=== PATIENT | female | born 1995 | race Caucasian/White ===

== ENCOUNTER 2016-07-19 10:12 | Emergency (ER) | payer OTHER ==
[~2016-07-19] VITALS: Ht 154.9 cm; Wt 81.8 kg
[2016-07-19 10:14] VITALS: BP 138/82; PULSE 93; RESP 16; O2SAT 98
--- NOTE | 2016-07-19 10:31 | ED.REPORT ---
HPI-Abd Pain F Under 39 Date of Service Jul 19, 2016 ED Provider: Homer Sharp MD Pt is a healthy 20 y/o female presenting to the ED c/o intermittent lower abdominal cramping pain onset last night. She describes her pain as severe menstrual cramping which lasts for 5 minutes at a time. Her pain does not seem to be brought on by anything specific and simply relieves with time. Pt c/o associated mild diarrhea. She denies fever, vomiting, bloody stools, urinary frequency, dysuria. She just began her menstrual period today. She has never been and does not believe that she could be at this time. There is no history of abdominal surgeries. The patient had a similar less severe episode 4 months ago which lasted 2 months ago at which time the workup was negative. There has been no recent alcohol use. Nursing Notes Stated Complaint: CRAMPING Chief Complaint: Female Abdominal Pain Nursing Notes Reviewed: Yes Allergies: Coded Allergies: No Known Allergies (Verified Allergy, Unknown, 04/22/14) General Time Seen by MD: 10:30 Chief Complaint Abdominal pain Hx Obtained From: Patient Arrived By: Walk-in Sudden in Onset?: No Onset Occurred: 9 - 12 hours ago Symptom Duration: Intermittent Progression since Onset: Waxes and wanes Location: : Abdomen lower Quality: Painful Radiation: : Does not radiate Severity: Current: No pain currently Severity: Maximum: Severe Similar Sx Previous: No Past Medical History Past Medical History Depression Past Surgical History denies Smoking History Never Smoker Social History Alcohol Use: "Social" Drug Use: Denies drug use Other Social History: Good social support, Lives alone Ambulatory Status Independent Review of Systems Constitutional: Denies: Chills, Fever Respiratory: Denies: Non-productive cough, Shortness of breath Cardiovascular: Denies: Chest pain, Dyspnea on exertion GI: Reports: Abdominal pain, Diarrhea, Denies: Bloody/tarry stool, Nausea, Vomiting Female: Denies: Dysuria, Urinary frequency Complete sys rev & neg: except as marked. Physical Exam Initial Vital Signs Vital Signs (First) Date Time Temp Pulse Resp B/P Pulse Ox O2 Delivery O2 Flow Rate FiO2 07/19/16 10:14 37.0 93 16 138/82 98 Room Air Initial VS: Reviewed, Vital signs normal Head / Eyes: Atraumatic, Normocephalic, PERRL ENT: Mucous membranes moist, Conjunctiva normal, No scleral icterus Neck: Supple, Full range of motion Extremities: Vascular intact, Neuro intact, No swelling, No tenderness Skin: Warm, Dry, No cyanosis Neurologic: Alert, Oriented, Nonfocal Psychiatric: Mood/affect normal, Behavior normal, Normal thought content General/Constitutional: Awake, Alert, No acute distress, Well appearing, Well developed, Well hydrated, Well nourished, Cooperative, Not toxic appearing Respiratory / Chest: Atraumatic, Breath sounds NL, Breath sounds = bilat, No respiratory distress, No rales, No rhonchi, No wheezing, No retractions, No stridor, No chest tenderness, No chest wall deformity, No crepitus Cardiovascular: Heart rate NL, Regular rhythm, Heart sounds NL, No gallop, No murmurs, No rubs, Cap refill not delayed, Peripheral circulation NL Abdomen: Atraumatic, Soft, Non-tender, No guarding, No rebound, No distention, No palpable mass Back: Full range of motion, Painless range of motion, No CVA tenderness Interpretation & Diagnostics Lab Results Interpretation Result Diagram: 07/19/16 1045 07/19/16 1045 Test 07/19/16 10:45 07/19/16 13:19 White Blood Count 11.3th/mm3 (3.8-10.1) Red Blood Count 4.79mil/mm3 (3.90-5.20) Hemoglobin 14.1g/dL (12.0-15.6) Hematocrit 41.5% (35.0-46.0) Mean Corpuscular Volume 86.6fL (81-100) Mean Corpuscular Hemoglobin 29.4pg (27.0-35.0) Mean Corpuscular Hemoglobin Concent 34.0% (32.0-37.0) Red Cell Distribution Width 13.3% (12.3-15.4) Platelet Count 235bil/L (150-400) Neutrophils (%) (Auto) 82.5% (40-74) Lymphocytes (%) (Auto) 9.0% (14-46) Monocytes (%) (Auto) 8.0% (4-12) Eosinophils (%) (Auto) 0% (0-5) Basophils (%) (Auto) 0.1% (0-3) Sodium Level 138mEq/L (134-144) Potassium Level 4.2mEq/L (3.5-5.2) Chloride Level 97mEq/L (97-108) Carbon Dioxide Level 25mmol/L (18-29) Blood Urea Nitrogen 9mg/dL (6-20) Creatinine 0.78mg/dL (0.57-1.00) Estimat Glomerular Filtration Rate 134mL/min (>59) Glucose Level 100mg/dL (60-99) Calcium Level 9.2mg/dL (8.5-10.1) Magnesium Level 1.9mg/dL (1.6-2.6) Total Bilirubin 0.6mg/dL (0.0-1.2) Aspartate Amino Transf (AST/SGOT) 17U/L (0-50) Alanine Aminotransferase (ALT/SGPT) 19U/L (0-32) Alkaline Phosphatase 68U/L (25-150) Total Protein 7.3g/dL (6.4-8.4) Albumin 4.4g/dL (3.4-5.0) Lipase 23U/L (13-60) Hold Maguire Top Tube Received (Received) Urine Color Yellow (YELLOW) Urine Appearance Hazy (CLEAR,HAZY) Urine pH 6.0 (5.0-8.0) Urine Specific [place] 1.015 (1.003-1.035) Urine Protein Negativemg/dL (NEG,TRACE) Urine Glucose (UA) Negativemg/dL (NEGATIVE) Urine Ketones Negativemg/dL (NEGATIVE) Urine Occult Blood Small (NEGATIVE) Urine Nitrite Negative (NEGATIVE) Urine Bilirubin Negative (NEGATIVE) Urine Urobilinogen Normalmg/dL (NORMAL) Urine Leukocyte Esterase Negative (NEGATIVE) Urine RBC 0-2/hpf (0-2) Urine WBC 0-5/hpf (0-5) Urine Epithelial Cells Occasional/hpf (NONE-MOD) Urine Crystals None seen (NONE SEEN) Urine Bacteria Few/hpf (NONE-FEW) Urine Hyaline Casts None/lpf (NONE) Urine Granular Casts None seen (NONE SEEN) Urine Waxy Casts None seen (NONE SEEN) Urine Red Blood Cell Casts None seen (NONE SEEN) Urine White Blood Cell Casts None seen (NONE SEEN) Urine Mucus None seen (None Seen) Urine Trichomonas None seen (NONE SEEN) Urine Yeast None (NONE SEEN) Urinalysis Comment None Urine Culture Reflexed Not indicated US Focused non-OB Pelvis US tech reports normal exam Exam Performed by: Allied health pract Exam Interpreted by: Allied health pract Re-Eval/Medical Decision Re-Evaluation/Progress #1: Time of Eval: 13:19 Re-Evaluation/Progress Note: Discussed all results as of yet. Awaiting UA. She experienced episodes of this pain while in the ED. Plan to obtain ultrasound. Re-Evaluation/Progress #2: Time of Eval: 15:16 Re-Evaluation/Progress Note: Pt rechecked. Informed pt of plan for treatment. Pt understands and agrees with plan for treatment. F/U instructions and RTER warnings given. All questions addressed. Counseled Regarding: Diagnosis, Lab results, Need for follow-up, When/why to return to ED Discharge & Departure Primary Impression: Abdominal pain Abdominal location: lower abdomen, unspecified Qualified Code: R10.30 - Lower abdominal pain, unspecified Disposition: Home Discharge Condition All VS Reviewed: Yes Condition: Stable Patient Instructions: Acute Abdominal Pain (ED) Additional Instructions: The cause of your pain is unclear at this moment but is not emergent. You may be experiencing menstrual cramping. Your lab results today were normal. The ultrasound was normal. Your physical exam is reassuring. Review of old records also reassures me that there is no dangerous condition. Return to the emergency department for persistent abdominal pain, high fever, persistent vomiting, or for other concerning symptoms. Follow-up with your primary care doctor later early next week to discuss today' s findings. We made you an appointment with Max Cuevas PA-C, on July 24 to check in at 10:45 in the morning. Referrals: Miriam Rooney MD (PCP) Luciana Attestation Portions of this note were transcribed by Yonatan Pelaez. I, Dr. Sharp, personally performed the history, physical exam and medical decision-making; I reviewed and confirmed the accuracy of the information in the transcribed note. Signed by Luciana Welsh, 07/19/16 - 1200 copies to: Miriam Rooney MD, Kirk H MD Jul 19, 2016 10:31 YONATAN PELAEZ Jul 19, 2016 11:29
[2016-07-19 10:57] LABS: BASOPHILS % (AUTO) 0.1 % (0-3); EOSINOPHILS % (AUTO) 0 % (0-5); Mean Corpuscular Hemoglobin 29.4 pg (27.0-35.0); Mean Corpuscular Volume 86.6 fL (81-100); NEUTROPHILS % (AUTO) 82.5 % (40-74); Platelet Count 235 bil/L (150-400)
[2016-07-19 11:39] LABS: Magnesium 1.9 mg/dL (1.6-2.6)
[2016-07-19 13:43] LABS: APPEARANCE,URINE HAZY (CLEAR,HAZY); COLOR,URINE YELLOW (YELLOW); OCCULT BLOOD,URINE SMALL (NEGATIVE); UROBILINOGEN,URINE NORMAL (NORMAL)
[2016-07-19 15:06] VITALS: BP 116/76; PULSE 84; RESP 20; O2SAT 98
--- NOTE | 2016-07-19 15:28 | DRSVH ---
PROCEDURE: US PELVIC SONOGRAM + TRANSVAGINAL SONOGRAM INDICATIONS: pelvic pain TECHNIQUE: Real-time scanning was performed of the pelvic organs, with image documentation. Additional endovagi nal scanning was necessary due to incomplete visualization of the adnexal and endometrial structures by transabdominal scanning. COMPARISON: None. FINDINGS: Transabdominal scanning: Limited scanning through the kidneys shows no hydronephrosis. No pathologi c free abdominal or pelvic fluid. Endovaginal scanning: Uterus: Uterus is anteverted and normal in size at 6.1 x 2.9 x 4.0 cm. The endometrium measures 2.9 mm in combined thickness. Ovaries: Right ovary measures 3.3 x 1.7 x 1.8 cm. There is a paraovarian cyst measuring 1.3 cm. Left ovary measures 3.5 x 2.0 x 1.9 cm. There is a simple follicular cyst measuring 1.5 cm. Doppler ultras ound demonstrates after and venous flow to both ovaries. IMPRESSION: 1. Normal uterus. 2. A paraovarian cyst adjacent to the right ovary. 3. No evidence for ovarian torsion. Dictated by: Gilberto Stephens M.D. on 07/19/2016 at 15:23 Approved by: Gilberto Stephens M.D. on 07/19/2016 at 15:26
== END 2016-07-19 15:29 | disposition home or self-care (01) ==
LOC: SED 10:12
DX: R10.30 Lower abdominal pain, unspecified (principal)
CPT/HCPCS: 76830; 76856; 80053; 81000; 81025; 83690; 83735; 85025; 96372; 99285; J1885